=== PATIENT | male | born 1950 | race African-American/Black ===

== ENCOUNTER 2020-06-02 03:07 | Emergency (ER) | payer MEDICARE ==
[2020-06-02] MEDS ORDERED: NORMAL SALINE 1000 ML 1,000 ML IV ONE ×2 (03:34→04:22)
[2020-06-02 03:49] LABS: ALBUMIN 3.4 g/dL (3.5-5.0); ALKALINE PHOSPHATASE 161 U/L (38-126); ANION GAP 10 (5-19); ASPARTATE AMINO TRANSFERASE 24 U/L (17-59); BILIRUBIN,TOTAL 0.5 mg/dL (0.2-1.3); BLOOD UREA NITROGEN 19 mg/dL (7-20); CALCIUM 8.3 mg/dL (8.4-10.2); CARBON DIOXIDE 23 mmol/L (22-30); CHLORIDE 103 mmol/L (98-107); POTASSIUM 3.8 mmol/L (3.6-5.0); TOTAL PROTEIN 6.8 g/dL (6.3-8.2)
[2020-06-02 03:58] LABS: ABSOLUTE BASOPHILS # (AUTO) 0.1 10^3/uL (0.0-0.2); ABSOLUTE EOSINOPHILS # (AUTO) 0.1 10^3/uL (0.0-0.6); ABSOLUTE LYMPHOCYTES (AUTO) 1.4 10^3/uL (0.5-4.7); ABSOLUTE MONOCYTES (AUTO) 0.6 10^3/uL (0.1-1.4); BASOPHILS % (AUTO) 0.9 % (0-2); HEMATOCRIT 35.8 % (37.9-51.0); HEMOGLOBIN 12.2 g/dL (13.5-17.0); LYMPHOCYTES % (AUTO) 16.5 % (13-45); MEAN CORPUSCULAR HEMOGLOBIN 31.5 pg (27.0-33.4); MEAN CORPUSCULAR VOLUME 93 fl (80-97); MONOCYTES % (AUTO) 7.6 % (3-13); PLATELET COUNT 196 10^3/uL (150-450); RED BLOOD COUNT 3.87 10^6/uL (4.35-5.55); RED CELL DISTRIBUTION WIDTH 13.1 % (11.5-14.0); TOTAL CELLS COUNTED % (AUTO) 100 %; WHITE BLOOD COUNT 8.2 10^3/uL (4.0-10.5)
[2020-06-02 03:59] LABS: GLUCOSE 648 mg/dL (75-110)
[2020-06-02] MEDS ORDERED: INSULIN REG, HUMAN 100 UNIT/ML 3 ML VIAL (PYX) SUBCUT ONE (04:01)
--- NOTE | 2020-06-02 04:07 | ER Document Report ---
ED Blood Sugar Problem <OSMIN WONG T - Last Filed: 06/02/20 09:54> - Related Data Home Medications: Lisinopril. Metformin <MARTINA OSMAN - Last Filed: 06/02/20 19:05> - General Chief Complaint: High Blood Sugar Stated Complaint: HYPERGLYCEMIC LOWER BACK PAIN Time Seen by Provider: 06/02/20 03:47 Primary Care Provider: OSMIN FLANAGAN MD [ACTIVE STAFF] - Follow up as needed Notes: CHIEF COMPLAINT: Elevated blood sugar, chest pain HPI: 69-year-old diabetic male history of [place] in 2009 that resulted in 3 stents presenting for elevated blood sugar with some dizziness over the last 3 days. Patient ran out of his metformin and lisinopril for 5 days ago. Patient states he has had some intermittent chest discomfort with the dizziness but also feels that this is related to his blood sugars being high. Has not had nausea vom iting. Has not had fever or cough. Denies shortness of breath ROS: See HPI - all other systems were reviewed and are otherwise negative Constitutional: no fever Eyes: no drainage, no blurred vision ENT: no runny nose, no sore throat Cardiovascular: + chest pain Resp: no SOB, no cough GI: no vomiting, no diarrhea, no abdominal pain : no dysuria Integumentary: no rash Allergy: no hives Musculoskeletal: no extremity pain or swelling Neurological: no numbness/tingling, no weakness, positive dizziness or lightheadedness MEDICATIONS: I agree with the patient medications as charted by the RN. ALLERGIES: I agree with the allergies as charted by the RN. PAST MEDICAL HISTORY/PAST SURGICAL HISTORY: Reviewed and agree as charted by RN. SOCIAL HISTORY: Reviewed and agree as charted by RN. FAMILY HISTORY: No significant familial comorbid conditions directly related to patient complaint EXAM: Reviewed vital signs as charted by RN. CONSTITUTIONAL: Alert and oriented and responds appropriately to questions. Well-appearing; well-nourished HEAD: Normocephalic; atraumatic EYES: PERRL; Conjunctivae clear, sclerae non-icteric ENT: normal nose; no rhinorrhea; moist mucous membranes; pharynx without lesions noted, no uvula edema or deviation, no tonsillar hypertrophy, phonation normal NECK: Supple without meningismus; non-tender; no cervical lymphadenopathy, no masses CARD: Mild tachycardia; no murmurs, no clicks, no rubs, no gallops; symmetric distal pulses RESP: Normal chest excursion without splinting or tachypnea; breath sounds clear and equal bilaterally; no wheezes, no rhonchi, no rales, pulse oximetry 98% on room air not hypoxic ABD/GI: Normal bowel sounds; non-distended; soft, non-tender, no rebound, no guarding; no palpable organomegaly or masses. BACK: The back appears normal and is non-tender to palpation, there is no CVA tenderness EXT: Normal ROM in all joints; non-tender to palpation; no cyanosis, no effusions, no edema SKIN: Normal color for age and race; warm; dry; good turgor; no acute lesions noted NEURO: Moves all extremities equally; Motor and sensory function intact PSYCH: The patient's mood and manner are appropriate. Grooming and personal hy giene are appropriate. MDM: 69-year-old male presenting with lightheadedness out of his medicines for diabetes and hypertension for for 5 days. Blood glucose was noted to be 678 by labs drawn by triage process we will add venous blood gas to evaluate for possible DKA. Will add screening cardiac labs given his complaint of intermittent chest pain over the last several days with his dizzy episodes. (MARTINA OSMAN) - Related Data Allergies/Adverse Reactions: Penicillins Allergy (Verified 06/02/20 03:31) Past Medical History - Social History Smoking Status: Never Smoker Family History: Reviewed & Not Pertinent <MARTINA OSMAN - Last Filed: 06/02/20 19:05> Physical Exam - Vital signs Vitals: Temp Resp BP Pulse Ox 98.5 F 21 H 185/99 H 95 06/02/20 03:11 06/02/20 03:11 06/02/20 03:11 06/02/20 03:11 Course - Laboratory Result Diagrams: 06/02/20 03:15 06/02/20 03:15 <OSMIN WONG - Last Filed: 06/02/20 09:54> - Laboratory Result Diagrams: 06/02/20 03:15 06/02/20 03:15 <MARTINA OSMAN - Last Filed: 06/02/20 19:05> - Re-evaluation Re-evalutation: 06/02/20 09:55 This is my first physician preschool assistant making a note. I was left patient from the overnight cashier midlevel practitioner with information that I was waiting on a third troponin to be drawn at 8:30 AM. He had had a slight bump in his troponins but it was negligible on the first 2 so third troponin was supposed to be our guidance. Nurse went in to draw the blood patient became irate and wanted to leave AGAINST MEDICAL ADVICE because he has 2 dogs that are in a hotel locked in the bathroom and he is very upset about being here this long. I had a long discussion with him and he agreed to stay until the last troponin came back. It was drawn approximately 830 as indicated and is been pushed back by lab on getting the results back. Patient again is becoming irate and this time he refuses to stay. I am going to give him his discharge papers but he is leaving AGAINST MEDICAL ADVICE at this time and he understands that he could be having a heart condition or heart problem that I cannot inform him about until return of these labs. He has been informed that he can walk up the door and . He understands this is a possibility still insist on leaving. (OSMIN WONG) 06/02/20 04:22 EKG shows a sinus tachycardia with a ventricular rate of 112. Left ventricular hypertrophy is noted. Reviewed by ER physician. No other ectopy noted. 06/02/20 07:22 Patient second troponin 0 0.055. Patient has no chest discomfort at this time. Patient came to this area 1 month ago from [facility] his blood sugars normally run in the 120 range in the mornings. discussed with Dr. Dumont, attending. requests another troponin at 830 AM as well as Hemoglobin A1C. (MARTINA OSMAN) - Vital Signs Vital signs: Temp Pulse Resp BP Pulse Ox 98.5 F 19 168/100 H 99 06/02/20 03:11 06/02/20 09:01 06/02/20 09:01 06/02/20 09:01 - Laboratory Laboratory results interpreted by me: 06/02/20 06/02/20 06/02/20 03:15 03:15 03:15 RBC 3.87 L Hgb 12.2 L Hct 35.8 L Sodium 135.9 L Creatinine 1.89 H Est GFR ( Amer) 43 L Est GFR (MDRD) Non-Af 36 L Glucose 648 H* POC Glucose Hemoglobin A1c % 12.5 H Calcium 8.3 L Alkaline Phosphatase 161 H Albumin 3.4 L Urine Protein Urine Glucose (UA) Urine Blood Urine Urobilinogen 06/02/20 06/02/20 06/02/20 03:26 04:33 05:31 RBC Hgb Hct Sodium Creatinine Est GFR ( Amer) Est GFR (MDRD) Non-Af Glucose POC Glucose > 550 H* 415 H* Hemoglobin A1c % Calcium Alkaline Phosphatase Albumin Urine Protein 100 H Urine Glucose (UA) >=500 H Urine Blood SMALL H Urine Urobilinogen 2.0 H 06/02/20 07:12 RBC Hgb Hct Sodium Creatinine Est GFR ( Amer) Est GFR (MDRD) Non-Af Glucose POC Glucose 298 H Hemoglobin A1c % Calcium Alkaline Phosphatase Albumin Urine Protein Urine Glucose (UA) Urine Blood Urine Urobilinogen Discharge <OSMIN WONG - Last Filed: 06/02/20 09:54> <MARTINA OSMAN - Last Filed: 06/02/20 19:05> - Discharge Clinical Impression: Hyperglycemia, Medication refill, Renal insufficiency HTN (hypertension) Qualifiers: Hypertension type: essential hypertension Qualified Code(s): I10 - Essential (primary) hypertension Chest pain Qualifiers: Chest pain type: other chest pain Qualified Code(s): R07.89 - Other chest pain Disposition: AGAINST MEDICAL ADVICE Instructions: High Blood Pressure ([facility]), Hyperglycemia ([facility]) Additional Instructions: As I discussed with you I cannot tell you that you do not have a heart condition going on but you are choosing to leave. We are just waiting for the last troponin to come back. But since you have decided to leave you have to sign out AGAINST MEDICAL ADVICE and again you could go out here and . We had this quzi-bu-rift conversation and you understand the risks. You know you are leaving AGAINST MEDICAL ADVICE I am going to give you your prescriptions and you need to follow-up with a primary care provider for further fulfillment of these medications in the future. Should you have a change your mind and want to be re-seen in the emergency room we would be happy to do so. Prescriptions: Metformin HCl [Glucophage 500 mg Tablet] 500 mg PO BID #60 tablet Lisinopril 20 mg PO DAILY #30 tablet Referrals: OSMIN FLANAGAN MD [ACTIVE STAFF] - Follow up as needed
[2020-06-02 04:25] LABS: VENOUS BLOOD BASE EXCESS -2.4 mmol/L; VENOUS BLOOD HCO3 22.9 mmol/L (20-32); VENOUS BLOOD PCO2 41.3 mmHg (35-63); VENOUS BLOOD PH 7.36 (7.30-7.42)
[2020-06-02 04:49] LABS: APPEARANCE,URINE CLEAR; BILIRUBIN,URINE NEGATIVE (NEGATIVE); COLOR,URINE STRAW; GLUCOSE, URINE >=500 mg/dL (NEGATIVE); KETONES,URINE NEGATIVE (NEGATIVE); LEUKOCYTE ESTERASE,URINE NEGATIVE (NEGATIVE); NITRITE,URINE NEGATIVE (NEGATIVE); PROTEIN,URINE 100 mg/dL (NEGATIVE); URINE SPECIFIC GRAVITY 1.023
[2020-06-02] MEDS ORDERED: LISINOPRIL 10 MG TABLET PO ONE (06:37)
[2020-06-02] MEDS ORDERED: METFORMIN HCL 500 MG TABLET PO ONE (06:37)
--- NOTE | 2020-06-02 08:34 | EKG REPORT ---
SEVERITY:- ABNORMAL ECG - SINUS TACHYCARDIA LEFT VENTRICULAR HYPERTROPHY : Confirmed by: Kassie Fiore 02-Jun-2020 08:33:27
[2020-06-02 10:00] VITALS: BP 168/100
== END 2020-06-02 10:00 | disposition left against medical advice (07) ==
LOC: ER 03:07
DX: Z76.0 Encounter for issue of repeat prescription (principal); N28.9 Disorder of kidney and ureter, unspecified; I10 Essential (primary) hypertension; R07.9 Chest pain, unspecified; E11.65 Type 2 diabetes mellitus with hyperglycemia; R00.0 Tachycardia, unspecified; R07.89 Other chest pain; Z79.84 Long term (current) use of oral hypoglycemic drugs; Z79.899 Other long term (current) drug therapy
CPT/HCPCS: 93005; 99284; 96360; 96361; 36415; 82962; 85025; 80053; 81001; 84484; 83036; 82803; 93010; A9270 ×3; J7030; J1815